=== PATIENT | female | born 1975 | race Caucasian/White ===

== ENCOUNTER 2021-09-04 11:21 | Emergency (ER) | payer OTHER ==
[~2021-09-04] VITALS: Ht 170.2 cm; Wt 50.8 kg
[~2021-09-04 11:21] MED LIST: ACET500 PO; AMIT50 PO; AMOCLA875 PO; CELEBREX; CIPR500 PO; Guaifenesin Dm118 ML PO; HYDACE10; HYDACE5; HYDACE5 PO; HYDACE7.5; HYDACE7.5 PO; IBUP800 PO; METH10 PO; METO10 PO; MULVITMINE PO; MUSCLE RELAXER; NAPR500 PO; OXYACE5T PO; OXYC15ER PO; PHENA200 PO; Prednisone20 MG PO; RXPHEN200 PO; SULTRIDS PO; TRAM50 PO; Zithromax250 MG PO; [UNRECOGNIZED DRUG - REMARK]
[2021-09-04 13:45] LABS: BASOPHILS ABSOLUTE AUTO 0.05 K/mm3 (0.00-0.23); BASOPHILS PERCENT AUTO 1 % (0-2); EOSINOPHILS PERCENT AUTO 4 % (0-6); Hematocrit 40.8 % (33.0-51.0); Hemoglobin 13.2 g/dL (11.5-16.0); IMMATURE GRAN ABSOLUTE AUTO 0.01 K/mm3 (0.00-0.10); IMMATURE GRAN PERCENT AUTO 0 % (0-1); LYMPHOCYTES ABSOLUTE AUTO 1.33 K/mm3 (0.84-5.20); LYMPHOCYTES PERCENT AUTO 25 % (21-46); MONOCYTES ABSOLUTE AUTO 0.44 K/mm3 (0.16-1.47); MONOCYTES PERCENT AUTO 8 % (4-13); Mean Corpuscular HGB 29.9 pg (26.0-34.0); Mean Corpuscular HGB Conc 32.4 g/dL (31.5-36.5); Mean Corpuscular Volume 93 fL (80-100); Mean Platelet Volume 11.5 fL (9.1-12.4); NEUTROPHILS PERCENT AUTO 63 % (41-73); Platelet Count 298 K/mm3 (150-400); RDW Coefficient Variation 11.9 % (11.7-14.2); RDW Standard Deviation 40.8 fL (35.1-46.3); Red Blood Cell Count 4.41 M/mm3 (3.80-5.20); White Blood Cell Count 5.43 K/mm3 (4.00-11.30)
[2021-09-04 13:57] LABS: Albumin, Blood 3.7 g/dL (3.4-5.0); Albumin/Globulin Ratio 1.1 (0.8-1.8); Bilirubin, Total 0.4 mg/dL (0.1-1.0); Bun/Creatinine Ratio 17.5 (12.0-20.0); Calcium, Blood 9.1 mg/dL (8.5-10.1); Creatinine, Blood 0.68 mg/dL (0.40-1.00); Globulin, Blood 3.5 g/dL (2.2-4.0); Total Protein, Blood 7.2 g/dL (6.4-8.2)
== END 2021-09-04 16:50 | disposition left against medical advice (07) ==
LOC: ER 11:21
PROVIDERS: Physician Assistant
DX: T18.2XXA Foreign body in stomach, initial encounter (principal); T18.3XXA Foreign body in small intestine, initial encounter; T18.4XXA Foreign body in colon, initial encounter; J45.909 Unspecified asthma, uncomplicated; X58.XXXA Exposure to other specified factors, initial encounter; Y92.149 Unspecified place in prison as the place of occurrence of the external cause; Z87.891 Personal history of nicotine dependence
CPT/HCPCS: 36415; 74022; 74176; 80053; 83690; 85025; 86850; 86900; 86901

== ENCOUNTER 2023-05-11 16:14 | Emergency (ER) | payer OTHER ==
[~2023-05-11] VITALS: Ht 170.2 cm; Wt 47.6 kg
[2023-05-11 16:29] VITALS: BP 140/85
== END 2023-05-11 17:35 | disposition home or self-care (01) ==
LOC: ER 16:14
DX: M77.11 Lateral epicondylitis, right elbow (principal); M77.12 Lateral epicondylitis, left elbow; F17.200 Nicotine dependence, unspecified, uncomplicated; M19.90 Unspecified osteoarthritis, unspecified site; Z88.5 Allergy status to narcotic agent
CPT/HCPCS: 73140; 99283-25

== ENCOUNTER 2024-03-11 11:45 | Emergency (ER) | payer OTHER ==
[~2024-03-11] VITALS: Ht 170.2 cm; Wt 47.2 kg
[2024-03-11 11:51] VITALS: BP 138/82
[2024-03-11] MEDS ORDERED: CEPH500 PO (14:04)
== END 2024-03-11 14:30 | disposition home or self-care (01) ==
LOC: ER 11:45
DX: S81.011A Laceration without foreign body, right knee, initial encounter (principal); F17.200 Nicotine dependence, unspecified, uncomplicated; W01.118A Fall on same level from slipping, tripping and stumbling with subsequent striking against other sharp object, initial encounter; Z88.5 Allergy status to narcotic agent
CPT/HCPCS: 12002; 73562-RT; 99283-25

== ENCOUNTER 2025-01-08 11:33 | Emergency (ER) | payer OTHER ==
[~2025-01-08] VITALS: Ht 170.2 cm; Wt 52.2 kg
[~2025-01-08 11:33] MED LIST changes: +CEPH500 PO
[2025-01-08 14:01] VITALS: BP 150/71
[2025-01-08] MEDS ORDERED: Masophen500 MG PO (14:09)
[2025-01-08] MEDS ORDERED: IBUP600 PO (14:49)
== END 2025-01-08 14:56 | disposition home or self-care (01) ==
LOC: ER 11:33
DX: M19.012 Primary osteoarthritis, left shoulder (principal); M19.011 Primary osteoarthritis, right shoulder; F17.200 Nicotine dependence, unspecified, uncomplicated; Z88.5 Allergy status to narcotic agent
CPT/HCPCS: 73030; 99283-25